=== PATIENT | female | born 1985 | race American Indian/Alaskan Native ===

== ENCOUNTER 2017-07-23 08:23 | Emergency (ER) | payer SELFPAY ==
[2017-07-23 08:34] VITALS: BP 110/64
[2017-07-23 09:02] LABS: Basophils % (Auto) 0.5 % (0.0-1.8); Eosinophils # (Auto) 0.8 K/mm3 (0.0-0.4); Eosinophils % (Auto) 11.5 % (0.0-4.3); Hematocrit 40.7 % (30.3-42.9); Hemoglobin 13.5 gm/dl (10.1-14.3); Lymphocytes # (Auto) 2.9 K/mm3 (1.2-5.4); Lymphocytes % (Auto) 41.5 % (13.4-35.0); Mean Corpuscular HGB Conc 33 % (30-34); Mean Corpuscular Hemoglobin 29 pg (28-32); Mean Corpuscular Volume 86 fl (79-97); Monocytes # (Auto) 0.5 K/mm3 (0.0-0.8); Platelet Count 262 K/mm3 (140-440); Red Blood Count 4.73 M/mm3 (3.65-5.03); Red Cell Distribution Width 13.4 % (13.2-15.2)
[2017-07-23 09:10] LABS: Bilirubin,Urine NEG (Negative); Blood,Urine LG (Negative); Color,Urine Red (Yellow); RBC,Urine > 182.0 /HPF (0.0-6.0); Urobilinogen,Urine < 2.0 mg/dL (<2.0); WBC,Urine > 182.0 /HPF (0.0-6.0)
--- NOTE | 2017-07-23 12:30 | Emergency Department Report ---
ED Female HPI - General Chief complaint: Abdominal Pain Stated complaint: ABD PAIN Time Seen by Provider: 07/23/17 12:14 Source: patient Mode of arrival: Ambulatory Limitations: No Limitations - History of Present Illness Initial comments: This is a 32 y.o. female that presents with heavy menstrual bleeding and cramping for 3 weeks. Patient reports menses started 06/29/2017 and haven't stopped since. She is wearing overnight pads and having to change them every 20- 30 minutes. States menses normally last for 5-7 days with light cramping. This pain is 10/10 and constant. She is taking aleve with no improvement of symptoms. She is bleeding so much that is is causing difficulty sleeping and causing panic attacks. She is so nervous to move or go out because she is afraid the blood will run down her legs or she will not make it to the restroom in time. Denies back pain, frequency, urgency, dysuria, nausea/vomiting, or dizziness. MD Complaint: vaginal bleeding -: week(s) (3) Location: other (bilateral lower quadrant cramping) Radiation: non-radiating Severity: moderate Severity scale (0 -10): 7 Quality: cramping Consistency: constant Improves with: none Worsens with: none Associated Symptoms: vaginal bleeding, abdominal pain (bilateral lower abdominal pain). denies: nausea/vomiting, fever/chills, headaches, loss of appetite, dysuria, hematuria, rash, seizure, shortness of breath, syncope, weakness - Related Data Sexually active: Yes Previous Rx's Medication Instructions Recorded Last Taken Type Trazodone HCl 50 mg PO QHS #30 tablet 07/23/17 Unknown Rx medroxyPROGESTERone ACETATE 10 mg PO DAILY #10 tablet 07/23/17 Unknown Rx [Medroxyprogesterone Acetate] Allergies Allergy/AdvReac Type Severity Reaction Status Date / Time aspirin Allergy Shortness Verified 07/23/17 08:29 of Breath Penicillins Allergy Swelling Verified 07/23/17 08:29 ED Review of Systems ROS: Stated complaint: ABD PAIN Other details as noted in HPI Constitutional: denies: chills, fever Respiratory: denies: cough, shortness of breath, wheezing Cardiovascular: denies: chest pain, palpitations, syncope Gastrointestinal: abdominal pain (bilateral lower abdominal pain). denies: nausea, vomiting, diarrhea, hematochezia Genitourinary: abnormal menses (heavy bleeding for 3 weeks, currently bleeding) . denies: urgency, dysuria, frequency, discharge Neurological: denies: headache, weakness, paresthesias Psychiatric: denies: anxiety, depression ED Past Medical Hx - Past Medical History Previous Medical History?: Yes Additional medical history: "panic attack" - Surgical History Past Surgical History?: No - Social History Smoking Status: Current Every Day Smoker Substance Use Type: Alcohol, Marijuana - Medications Home Medications: Home Medications Medication Instructions Recorded Confirmed Last Taken Type Trazodone HCl 50 mg PO QHS #30 tablet 07/23/17 Unknown Rx medroxyPROGESTERone ACETATE 10 mg PO DAILY #10 tablet 07/23/17 Unknown Rx [Medroxyprogesterone Acetate] ED Physical Exam - General Limitations: No Limitations General appearance: alert, in no apparent distress - Respiratory Respiratory exam: Present: normal lung sounds bilaterally. Absent: respiratory distress, wheezes, rales, rhonchi, stridor, accessory muscle use, decreased breath sounds - Cardiovascular Cardiovascular Exam: Present: regular rate, normal rhythm, normal heart sounds. Absent: systolic murmur, diastolic murmur, rubs, gallop - GI/Abdominal GI/Abdominal exam: Present: soft, normal bowel sounds. Absent: distended, tenderness, guarding, rebound, rigid, organomegaly, mass - Neurological Exam Neurological exam: Present: alert, oriented X3, normal gait - Psychiatric Psychiatric exam: Present: normal affect, normal mood - Skin Skin exam: Present: warm, dry, intact, normal color. Absent: rash ED Course Vital Signs 07/23/17 08:29 Temperature 97.7 F Pulse Rate 67 Respiratory 18 Rate Blood Pressure 110/64 O2 Sat by Pulse 100 Oximetry ED Medical Decision Making - Lab Data Result diagrams: 07/23/17 08:44 - Radiology Data Radiology results: report reviewed US pelvis and abdomen: Physiologic pelvic sonogram, as described. - Medical Decision Making 32 y.o. female that presents with vaginal bleeding for 3 weeks from start of menses and abdominal cramps. Patient examined by me. No signs of distress noted. She is having difficulty sleeping as well. Vitals stable. Obtained CBC, UA, & HCG quant. US of pelvis and abdomen obtained and read by radiologist. Patient informed of results and advised to f/u with [facility]. Start medroxyprogesterone 10 mg po daily for 5-10 days and trazadone 50 mg po qhs. Patient doesn't have PCP. Referred to [facility]. Discharged home. Follow up with [facility] in 48-72 hours. Critical care attestation.: If time is entered above; I have spent that time in minutes in the direct care of this critically ill patient, excluding procedure time. ED Disposition Clinical Impression: Abnormal uterine bleeding Disposition: TO HOME OR SELFCARE Is pt being admited?: No Does the pt Need Aspirin: No Condition: Stable Instructions: Dysfunctional Uterine Bleeding (ED) Additional Instructions: Start a menstrual diary, documenting frequency and amount of bleeding. This will be helpful in monitoring response to treatment. Follow up with [facility] in 2-3 days. Prescriptions: Trazodone HCl 50 mg PO QHS #30 tablet medroxyPROGESTERone ACETATE [Medroxyprogesterone Acetate] 10 mg PO DAILY #10 tablet Referrals: [facility] [Outside] - 3-5 Days [facility] [Outside] - 3-5 Days [facility] [Outside] - 3-5 Days Forms: Work/School Release Form(ED) Time of Disposition: 16:08 Print Language: INDONESIAN
--- NOTE | 2017-07-23 15:42 | Ultrasound Report ---
ULTRASOUND PELVIS COMPLETE - TRANSABDOMINAL AND TRANSVAGINAL: INDICATION: Lower abdominal pain, vaginal bleeding. COMPARISON: None similar at this institution. FINDINGS: Transabdominal and transvaginal pelvic sonography demonstrates normal uterus estimated at 7 x 3.2 x 5.2 cm. Endometrial thickness estimated at 4 mm. No significant free fluid. Physiologic bilateral ovaries, estimated at 3.1 x 1.8 x 3.3 cm on the right and 3.9 x 2.2 x 3.2 cm on the left. Few bilateral follicular cysts, the largest 1.7 cm on the right. CONCLUSION: Physiologic pelvic sonogram, as described. Thank you for the opportunity to participate in this patient's care.
== END 2017-07-23 16:16 | disposition home or self-care (01) ==
LOC: ED 08:23
DX: N93.9 Abnormal uterine and vaginal bleeding, unspecified (principal); F17.200 Nicotine dependence, unspecified, uncomplicated; F12.10 Cannabis abuse, uncomplicated; Z88.6 Allergy status to analgesic agent; Z88.0 Allergy status to penicillin
CPT/HCPCS: 36415; 76830; 76856; 81001; 84702; 85025; 86850; 86900; 86901; 99284